=== PATIENT | female | born 1965 | race Two or more races ===

== ENCOUNTER 2022-12-04 13:24 | Emergency (ER) | payer MEDICARE, SELFPAY ==
--- NOTE | 2022-12-04 13:36 | PC.NURSE ---
checked in when on phone with [facility], left because she got an appointment
== END 2022-12-04 13:45 | disposition left against medical advice (07) ==
PROVIDERS: Emergency Provider Emergency Medicine
DX: I10 Essential (primary) hypertension (principal)

== ENCOUNTER 2022-12-04 15:35 | Emergency (ER) | payer MEDICARE, MEDICAID, SELFPAY ==
--- NOTE | ~2022-12-04 | CT_ITS ---
EXAMINATION: CT head/brain wo IV con CLINICAL INFORMATION: Reason for Exam MARIN, HTN, N COMPARISON: None available. TECHNIQUE: Contiguous axial imaging was performed from the skull base to vertex without intravenous contrast. Sagittal and coronal reformatted images were obtained. This CT examination was performed using dose optimization techniques as appropriate, variously including the following: * Automated exposure control * Adjustment of mA and/or kV according to patient size (this includes techniques or standardized protocols for targeted exams where dose is matched to indication/reason for exam; i.e. extremities or head) Use of iterative reconstruction technique DLP: 622 mGy-cm FINDINGS: There is no evidence of acute intracranial hemorrhage. No mass-effect or ventricular shift is noted. No acute, territorial loss of rodriguez-white differentiation. The ventricles and sulci are appropriate in size and configuration for the patient's stated age. No depressed calvarial fracture. The visualized paranasal sinuses are well-aerated.. The mastoid air cells are clear. Bilateral intraocular lens replacements. CT/CT head/brain wo IV con IMPRESSION: No acute intracranial hemorrhage, mass effect, or midline shift.
--- NOTE | 2022-12-04 15:38 | PC.NURSE ---
EMS REPORTS PT NEEDS MEDICATION REFILL, WAS TRANSPORTED FROM [facility]
[2022-12-04 16:25] VITALS: BP 128/79; BP 132/88; PULSE 102; PULSE 93; RESP 17; TEMP 36; O2SAT 97; O2SAT 98; BMI 35.7
--- NOTE | 2022-12-04 16:32 | ED_ITS ---
HPI - General Adult General Chief complaint: General Medical Stated complaint: diabetic emergency Time Seen by Provider: 12/04/22 20:20 Source: patient Mode of arrival: ambulatory History of Present Illness HPI narrative: This is a 57-year-old female who arrives with complaints of headache and also requesting medication refill. She is recently up visiting her son from [place] but states that they got into a verbal altercation and she is now thinking of returning to [place]. She otherwise denies any fever, chills, shortness of breath, chest pain/palpitations and denies any GI or symptoms. Related Data Allergies Allergy/AdvReac Type Severity Reaction Status Date / Time latex Allergy Rash Verified 12/04/22 16:36 Review of Systems 2 Review of Systems: Pertinent positives and negatives as stated in HPI PMFSH Past Medical History Source: nursing notes reviewed Social History Social History Alcohol intake: former Smoked in Last 30 Days: Yes Use of substances other than those prescribed or required for medical reasons: Yes Substance Use Type: Crack/Cocaine Substance Use Frequency: Chronic Longstanding Last Used Substance: Weeks (ago) Any prior treatment program specific to substance use: No Advance Directives: No Advance Directives Information Provided: No Patient : No Physical Exam ED Vital Signs: Vital Signs - 24 hr 12/04/22 16:25 12/04/22 19:42 12/04/22 19:53 Temperature 96.8 F 98 F Pulse Rate 93 82 Respiratory Rate 17 14 Blood Pressure 128/79 207/113 H 188/76 H Pulse Oximetry 97 100 Oxygen Delivery Method Room Air 12/04/22 20:00 Temperature 98.3 F Pulse Rate 88 Respiratory Rate 16 Blood Pressure 182/92 H Pulse Oximetry 99 Oxygen Delivery Method Room Air BMI result Body Mass Index 35.7 VITAL SIGNS: Reviewed. GENERAL: Well developed, well nourished, in no acute distress. HEAD: Normocephalic/atraumatic EYES: PERRLA, EOMI OROPHARYNX: no oral lesions noted, posterior pharynx clear NECK: Supple, no adenopathy LUNGS: Normal breath sounds. No adventitious sounds or accessory muscle use. SpO2<99> CARDIOVASCULAR: Regular rate and rhythm without noted murmurs ABDOMEN: Soft, non-tender, non-distended with bowel sounds. MUSCULOSKELETAL: No tenderness, deformities, or effusions noted on gross inspection. EXTREMITIES: No cyanosis, clubbing or edema. SKIN: Inspection of the skin reveals no rashes NEUROLOGIC: Alert and oriented x 4. Strength and sensation to light touch were grossly intact x 4. Course Course Course Narrative: RME: 57-year-old female with a past medical history DM, osteoarthritis, anemia, HTN, neuropathy, GERD, depression, asthma, breast cancer in remission complaining of headache & being out of her home meds--Doxepin and Lyrica x3 days. Also requesting refill of Ozempic, last took today. Recently moved here from [place] COVID/flu, POC ordered Full HPI, ROS and PE to be performed by primary ED provider. -1945--on re-evaluation patient hypertensive 207/113, complaining of headache and nausea. Labs and CT head added. states is due for her night meds. Denies CP. Night meds ordered Medications Administered Discontinued Medications Generic Name Dose Route Start Last Admin Trade Name Freq PRN Reason Stop Dose Admin Acetaminophen 975 mg 12/04/22 20:53 12/04/22 21:02 Acetaminophen 325 Mg Tablet PO 12/04/22 20:54 975 mg ONCE ONE Administration Medical Decision Making Medical Decision Making [facility] Narrative: This is a 57-year-old female with history and clinical presentation consistent with request for medication refills as well as a headache without neurologic deficits and otherwise no acute medical complaints. Her reviewed patient's medications for refills and she appears to be getting regular medication refills from her doctor in [place]. The only medication that she needs to request a refill on is the Lyrica and she was encouraged to call her primary care provider's office in the morning to request the Lyrica refill. Otherwise, her medications for diabetes and depression appear to be active and available. I reviewed all investigations and hematologic indices are without leukocytosis or left shift, there is a normocytic anemia without evidence or report of active bleeding and there is no thrombocytopenia. Coagulation studies are within normal limits. Chemistry indices are grossly within normal limits without MEAGAN and there is no electrolyte or liver enzyme abnormalities. Patient is noted to be hyperglycemic without evidence of DKA or HHS and no evidence of metabolic acidosis. CT noncontrast of the head does not demonstrate any intracranial hemorrhage, mass effect or midline shift. Viral testing is negative for influenza and COVID-19. My interpretation is that patient likely has a headache from not having eaten throughout the day and stress related with her verbal conflict with her family member. Patient has adequate medications and she is discharged home. Differential Diagnosis Differential Diagnoses: The differential diagnosis associated with the presentation includes Please see the discussion above Admission/Observation Consideration of admission/observation: Escalation of care including admission/observation considered Please see the discussion above Lab Data MDM Lab Attestation statement: I reviewed the patient's lab results. Please see the discussion above 12/04/22 20:37 12/04/22 20:37 Labs: Lab Results 12/04/22 12/04/22 12/04/22 Range/Units 18:56 19:46 20:23 WBC (4.8-10.8) X10*3/uL RBC (4.20-5.50) X10*6/uL Hgb (12.0-16.0) g/dl Hct (37.0-47.0) % MCV (80.0-98.0) fL MCH (27.0-33.0) pg MCHC (31.0-35.0) g/dl RDW (11.0-16.0) % Plt Count (160-400) X10*3/uL MPV (9.4-12.3) fL Immature Gran % (Auto) (0.0-0.4) % Neut % (Auto) (45-73) % Lymph % (Auto) (20-40) % [place] % (Auto) (2-11) % Eos % (Auto) (0-4) % Baso % (Auto) (0-2) % Lymph # (Auto) (1.2-4.9) X10*3/uL [place] # (Auto) (0.1-1.2) X10*3/uL Eos # (Auto) (0.0-0.4) X10*3/uL Baso # (Auto) (0.0-0.2) X10*3/uL Abs Immat Gran (auto) (0.00-0.03) X10*3/uL Absolute Neuts (auto) (2.0-8.3) x10*3/uL Absolute Nucleated RBC (0.0-0.012) X10*3/uL Nucleated RBC % (auto) (0.0-0.2) /100WBC PT (11.1-13.3) SEC INR (0.9-1.1) Sodium (135-145) mmol/L Potassium (3.3-5.1) mmol/L Chloride (96-108) mmol/L Carbon Dioxide (22-29) mmol/L Anion Gap (12-20) BUN (9-16) mg/dL Creatinine (0.5-1.4) mg/dL Estim Creat Clear Calc Estimated GFR POC Glucose 186 H 193 H (60-115) mg/dL Random Glucose (60-115) mg/dL Calcium (8.4-10.2) mg/dL Total Bilirubin (0.0-1.0) mg/dL Direct Bilirubin (0.0-0.5) mg/dL AST (5-31) U/L ALT (0-31) U/L Alkaline Phosphatase (39-117) U/L Total Protein (6.5-8.0) g/dL Albumin (3.5-5.0) g/dL COVID-19 (FACUNDO) Negative (Negative) COVID-19 Clin Com See Note Influenza Type A (AZALEA) Negative (Negative) Influenza Type B (AZALEA) Negative (Negative) Influenza A & B Note See Note 12/04/22 Range/Units 20:37 WBC 9.9 (4.8-10.8) X10*3/uL RBC 4.12 L (4.20-5.50) X10*6/uL Hgb 11.6 L (12.0-16.0) g/dl Hct 34.7 L (37.0-47.0) % MCV 84.2 (80.0-98.0) fL MCH 28.2 (27.0-33.0) pg MCHC 33.4 (31.0-35.0) g/dl RDW 14.9 (11.0-16.0) % Plt Count 171 (160-400) X10*3/uL MPV 11.6 (9.4-12.3) fL Immature Gran % (Auto) 0.5 H (0.0-0.4) % Neut % (Auto) 65.4 (45-73) % Lymph % (Auto) 26.0 (20-40) % [place] % (Auto) 5.1 (2-11) % Eos % (Auto) 2.1 (0-4) % Baso % (Auto) 0.9 (0-2) % Lymph # (Auto) 2.6 (1.2-4.9) X10*3/uL [place] # (Auto) 0.5 (0.1-1.2) X10*3/uL Eos # (Auto) 0.2 (0.0-0.4) X10*3/uL Baso # (Auto) 0.1 (0.0-0.2) X10*3/uL Abs Immat Gran (auto) 0.05 H (0.00-0.03) X10*3/uL Absolute Neuts (auto) 6.5 (2.0-8.3) x10*3/uL Absolute Nucleated RBC 0.000 (0.0-0.012) X10*3/uL Nucleated RBC % (auto) 0.0 (0.0-0.2) /100WBC PT 11.4 (11.1-13.3) SEC INR 0.9 (0.9-1.1) Sodium 136 (135-145) mmol/L Potassium 3.8 (3.3-5.1) mmol/L Chloride 101 (96-108) mmol/L Carbon Dioxide 24 (22-29) mmol/L Anion Gap 15 (12-20) BUN 17 H (9-16) mg/dL Creatinine 1.11 (0.5-1.4) mg/dL Estim Creat Clear Calc 58.5 Estimated GFR 50 POC Glucose (60-115) mg/dL Random Glucose 210 H (60-115) mg/dL Calcium 10.0 (8.4-10.2) mg/dL Total Bilirubin 0.3 (0.0-1.0) mg/dL Direct Bilirubin 0.1 (0.0-0.5) mg/dL AST 41 H (5-31) U/L ALT 21 (0-31) U/L Alkaline Phosphatase 106 (39-117) U/L Total Protein 7.7 (6.5-8.0) g/dL Albumin 4.3 (3.5-5.0) g/dL COVID-19 (FACUNDO) (Negative) COVID-19 Clin Com Influenza Type A (AZALEA) (Negative) Influenza Type B (AZALEA) (Negative) Influenza A & B Note Radiology Impression Discussion of test interpretation with radiology: I have reviewed the radiologist's reading. Radiologist Impression: Please see the discussion above Chronic Conditions Patient?s care impacted by: Diabetes and Hypertension Discharge Plan Discharge Clinical Impression: Headache, Hyperglycemia due to diabetes mellitus, Medication refill Patient Disposition: Home, Self-Care Instructions: General Headache (ED), Diabetic Hyperglycemia (ED) Additional Instructions: 1. Resume all home medications as prescribed. The remainder of your prescription should be a [facility]. 2. Recommend Tylenol for any headaches that you may experience. Continue to drink plenty of water. 3. Please call the office of your primary care doctor to get a refill on your Lyrica. Return to the ER for any worsening symptoms.
[2022-12-04 19:18] LABS: COVID-19 Test Negative (Negative); IDNOW Serial# 08D9AD1C; IDNOW Serial# BCCEAD1C; Influenza A Negative (Negative); Influenza B2 Negative (Negative)
[2022-12-04 19:42] VITALS: BP 207/113; PULSE 82; RESP 14; TEMP 36.6; O2SAT 100
[2022-12-04 19:50] LABS: Glucose, Whole Blood 186 mg/dL (60-115)
[2022-12-04 19:53] VITALS: BP 188/76
[2022-12-04 20:00] VITALS: BP 182/92; PULSE 88; RESP 16; TEMP 36.8; O2SAT 99
--- NOTE | 2022-12-04 20:25 | PC.NURSE ---
a&ox3, vss aside from HTN. pt was hypertensive in triage (207/113) but BP has decreased at this time (182/92). pt c/o headache/nausea at this time. POC = 193mg/dL. pt states that she is here for medication refill. states that she took her medications today but will not have enough medication for her morning doses. states that she moved here from [place] 1 month ago and does not have appt with pcp for 17 weeks. pt resting comfortably in no apparent distress at this time. respirations even and unlabored. call aviles placed within reach.
[2022-12-04 20:26] LABS: Glucose, Whole Blood 193 mg/dL (60-115)
--- NOTE | 2022-12-04 20:40 | PC.NURSE ---
labs obtained and sent to lab.
[2022-12-04 20:42] LABS: MANUAL DIFF FLAG NO
[2022-12-04 20:44] LABS: Basophils Absolute Auto 0.1 X10*3/uL (0.0-0.2); Basophils Percent Auto 0.9 % (0-2); Eosinophils Absolute Auto 0.2 X10*3/uL (0.0-0.4); Eosinophils Percent Auto 2.1 % (0-4); Hematocrit 34.7 % (37.0-47.0); Hemoglobin 11.6 g/dl (12.0-16.0); Imm Gran Abs Auto 0.05 X10*3/uL (0.00-0.03); Imm Gran Pct Auto 0.5 % (0.0-0.4); Lymphocytes Absolute Auto 2.6 X10*3/uL (1.2-4.9); Mean Corpuscular HGB Conc 33.4 g/dl (31.0-35.0); Mean Corpuscular Hemoglobin 28.2 pg (27.0-33.0); Mean Corpuscular Volume 84.2 fL (80.0-98.0); Mean Platelet Volume 11.6 fL (9.4-12.3); Monocytes Absolute Auto 0.5 X10*3/uL (0.1-1.2); Monocytes Percent Auto 5.1 % (2-11); Neutrophils Absolute Auto 6.5 x10*3/uL (2.0-8.3); Neutrophils Percent Auto 65.4 % (45-73); Platelet Count 171 X10*3/uL (160-400); Red Blood Count 4.12 X10*6/uL (4.20-5.50); Red Cell Distribution Width 14.9 % (11.0-16.0); White Blood Count 9.9 X10*3/uL (4.8-10.8)
--- OUTSIDE RECORDS SUMMARY | 2022-12-04 20:44 | XMS_ITS | Continuity of Care Document ---
Author Name Unknown Organization [facility] Address [address] [place] [address]- Care Team Providers Care Patent Prosecution Attorney Name Role Phone Not on Staff, PCP Primary Care Physician Unavail able Encounter [facility] [place] [facility] [place](s): 10/30/22 - 11/29/22 [facility] [address] [place] [address]- Attending Physician: Leif Jack Admitting Physician: AdmLeif hoffman Referring Physician: Admtr, Audie8 Allergies, Adverse Reactions, Alerts Substance Reaction Severity Status ibuprofen Active salicylates Active Levaquin hives Active Chantix NIGHTMARES Active Animal Dander Active Latex Active Pollen Active Seafood 1 seafood Active 1edema throat close carrt epi pen Immunizations Given and Recorded Vaccine Date Status Refusal Reason influenza virus vaccine, inactivated 1 04/25/09 Gi viry influenza virus vaccine, inactivated 2 12/04/06 Gi viry tetanus/diphtheria/pertussis, acel(Tdap) 04/10/08 Given Influenza Virus Vaccine (oldterm) 3 10/28/07 Given Pneumococcal Vaccine (oldterm) 4 09/09/04 Given 1Admin Note: VIS GIVEN-DATED 09/26/08 2Admin Note: VIS GIVEN 3Admin Note: vis given 4Admin Note: provider recording is Brandi tse, provider who gave it is in written chart at [facility] Medications Advair Diskus 500 mcg-50 mcg inhalation powder 1, puffs, Inhalation, 2 times a day, # 60 each, Refills 0, Tot. Refills 0, Maintenance, 01/28/16 14:09:30, Powder, Route to Pharmacy Electronically, [id number], [facility]. Start Date: 01/28/16 Status: Ordered ARIPiprazole 2 mg oral tablet 2 mg, 1, tablet, By Mouth, Daily at bedtime, # 30 tablet, Refills 0, Tot. Refills 0, Maintenance, 10/30/22 20:00:00 EDT, Route to Pharmacy Electronically, [facility] #[id number], Partial fill upon patient request if the prescription is for a sche... Start Date: 10/30/22 Status: Ordered atorvastatin 40 mg oral tablet 1 tablet = 40 mg, By Mouth, Daily at bedtime, # 30 tablet, 0 Refills, Maintenance, 10/30/22 20:00:00 EDT, Tablet, [facility] #[id number], Partial fill upon patient request if the prescription isfor a schedule II opioid drug., 160.02, cm, ... Start Date: 10/30/22 Status: Ordered atorvastatin 40 mg oral tablet 1 tablet = 40 mg, By Mouth, Daily, # 30 tablet, 0 Refills, Maintenance, Tablet, Route to Pharmacy Electronically, [id number], [facility] Start Date: 01/28/16 Status: Ordered Cymbalta 20 mg oral enteric coated capsule 1 capsule = 20 mg, By Mouth, 2 times a day, # 180 capsule, 0 Refills, Maintenance, 01/28/16 14:15:36, EC Capsule Start Date: 01/28/16 Status: Ordered doxepin 50 mg oral capsule 1 capsule = 50 mg, By Mouth, Daily at bedtime, # 30 capsule, 0 Refills, Maintenance, 10/30/22 20:01:00 EDT, Capsule, [facility] #[id number], Partial fill upon patient request if the prescriptionis for a schedule II opioid drug., 160.02, cm, 10/17... Start Date: 10/30/22 Status: Ordered EpiPen 2-Manuel 0.3 mg injectable kit = 0.3 mg, Intramuscular, Once, # 1 kit, 0 Refills, Soft Stop, 01/30/16 17:37:58 Start Date: 01/30/16 Status: Ordered Freestyle Lite Test Strips See Instructions, # 100 each, Refills 11, Tot. Refills 11, Maintenance, for DM2 ICD E11.65 check bs3 x per day, 01/28/16 16:13:59, Compound Start Date: 01/28/16 Status: Ordered insulin lispro 100 u/ml subcutaneous injection = 6 units, Subcutaneous Injection, 3 times a day with meals, # 15 mL, 0 Refills, Maintenance, 01/28/16 16:13:39, Solution Start Date: 01/28/16 Stop Date: 02/27/16 Status: Ordered lamotrigine 200 mg oral tablet 1 tablet = 200 mg, By Mouth, Daily at bedtime, # 30 tablet, 0 Refills, Maintenance, 01/28/16 14:13:42, Tablet Start Date: 01/28/16 Stop Date: 02/27/16 Status: Ordered Lantus 100 u/ml subcutaneous solution = 18 units, Subcutaneous Infusion, Daily at bedtime, # 10 mL, 0 Refills, Maintenance, 01/28/16 16:12:43 Start Date: 01/28/16 Stop Date: 02/27/16 Status: Ordered Latuda 80 mg oral tablet 2 tablet = 160 mg, By Mouth, Daily, with food, # 60 tablet, 0 Refills, Maintenance, 01/28/16 14:12:34, Tablet Start Date: 01/28/16 Status: Ordered lisinopril 20 mg oral tablet 20 mg, 1, tablet, By Mouth, Daily, # 30 tablet, Refills 0, Tot. Refills 0, Maintenance, 10/30/22 20:01:00 EDT, Route to Pharmacy Electronically, [facility] #[id number], Partial fill upon patientrequest if the prescription is for a schedule II op... Start Date: 10/30/22 Status: Ordered metoclopramide 5 mg oral tablet 1 tablet = 5 mg, By Mouth, 2 times a day, PRN Nausea, # 60 tablet, 0 Refills, Maintenance, 10/31/2319:03:00 EDT, Tablet, [facility] #[id number], Partial fill upon patient request if the prescription is for a schedule II opioid drug., 160.02, cm,... Start Date: 10/30/22 Status: Ordered montelukast 10 mg oral tablet 10 mg, 1, tablet, By Mouth, Daily, # 30 tablet, Refills 0, Tot. Refills 0, Maintenance, 10/30/22 20:04:00 EDT, Route to Pharmacy Electronically, [facility] #[id number], Partial fill upon patientrequest if the prescription is for a schedule II op... Start Date: 10/30/22 Status: Ordered nortriptyline 50 mg oral capsule 50 mg, 1, capsule, By Mouth, Daily at bedtime, # 30 capsule, Refills 0, Tot. Refills 0, Maintenance, 10/30/22 20:04:00 EDT, Route to Pharmacy Electronically, [facility] #[id number], Partial fillupon patient request if the prescription is for a s... Start Date: 10/30/22 Status: Ordered omeprazole 20 mg oral enteric coated capsule 1 capsule = 20 mg, By Mouth, Daily before breakfast, # 30 capsule, 0 Refills, Maintenance, 10/31/2319:04:00 EDT, EC Capsule, [facility] #[id number], Partial fill upon patient request if the prescription is for a schedule II opioid drug., 160.02,... Start Date: 10/30/22 Status: Ordered omeprazole 40 mg oral enteric coated capsule 1 capsule = 40 mg, By Mouth, Daily, # 30 capsule, 0 Refills, Maintenance, 01/28/16 14:17:12, EC Capsule Start Date: 01/28/16 Stop Date: 02/27/16 Status: Ordered Pen Mitchells, 31 G x 5 mm BD Ultra Fine III See Instructions, # 30 each, Maintenance, for DM2, ICD E11.65, 01/28/16 14:06:51, Compound Start Date: 01/28/16 Status: Ordered pregabalin 200 mg oral capsule 1 capsule = 200 mg, By Mouth, 3 times a day, # 90 capsule, 0 Refills, Maintenance, 10/30/22 20:05:00 EDT, Capsule, [facility] #[id number], Partial fill upon patient request if the prescription is for a schedule II opioid drug., 160.02, cm, ... Start Date: 10/30/22 Status: Ordered Spiriva HandiHaler 18 mcg Inhalation Capsule 1 capsule = 18 mcg, Inhalation, Daily, # 30 capsule, 0 Refills, Maintenance, 01/28/16 14:12:54, Capsule, 1 capsule Inhalation Daily,x30 days Start Date: 01/28/16 Stop Date: 02/27/16 Status: Ordered Ventolin HFA 108 mcg/inh inhalation aerosol with adapter 2 puffs, Inhalation, 4 times a day, PRN for wheezing, # 18 Gm, 0 Refills, Maintenance, 01/28/16 14:10:14, Aerosol Start Date: 01/28/16 Status: Ordered Problem List Condition Confirmation Course Effective Dates Status H ealth Status Informant Anxiety depression 1 Confirmed Active Asthma Confirmed Stable Active Diabetes mellitus Confirmed Active Dyslipidemia Confirmed Active Fatty liver 2 Confirmed Active Hypertension Confirmed Active Low back pain Confirmed Active Breast cancer S/P LT mastectomy 03/2014 Confirmed Active Narcotic drug user Confirmed Active Osteoarthritis Confirmed Active Tobacco smoking behavior - finding Confirmed Active 1being seen by the psychotherapist 2hepatitis panel Nl in 02/21 Social History Social History Type Response Smoking Status Current every day matt katherin entered on: 01/28/16 Sex Patient Care team information Care Team Personnel Name: Not on Staff, PCP Position: S Physician (General Medicine) Member Role: PCP Care Team Related Persons Name: ZARA AGUIRRE Name: MELODY SWEET Address: [address] [address] Name: DEBBIE PATRICIO Address: [place] [address]
--- OUTSIDE RECORDS SUMMARY | 2022-12-04 20:44 | XMS_ITS | Continuity of Care Document ---
Author Name Unknown Organization [facility] Address [address] [place] [address]- Care Team Providers Care Cable Tender Name Role Phone Not on Staff, PCP Primary Care Physician Unavail able En[place] [facility] [place]): 10/30/22 - 11/06/22 [facility] [address] [place] [address]- Encounter Diagnosis Hypertension(Discharge Diagnosis) - 10/30/22 Asthma(Discharge Diagnosis) - 10/30/22 Diabetic neuropathy(Discharge Diagnosis) - 10/30/22 Anxiety depression(Discharge Diagnosis) - 10/30/22 Hyperlipidemia(Discharge Diagnosis) - 10/30/22 Chronic GERD(Discharge Diagnosis) - 10/30/22 Attending Physician: Alireza MORGAN, Ylbebo Y Referring Physician: Not on Staff, Referring MD Allergies, Adverse Reactions, Alerts Substance Reaction Severity [...] gave it is in written chart at [facility] Medications Advair Diskus 500 mcg-50 mcg inhalation powder 1, puffs, Inhalation, 2 times a day, # 60 each, Refills 0, Tot. Refills 0, Maintenance, 01/28/16 14:09:30, Powder, Route to Pharmacy Electronically, [id number], [facility] Start Date: 01/28/16 Status: Ordered ARIPiprazole 2 mg oral tablet 2 mg, 1, tablet, By Mouth, Daily at bedtime, # 30 tablet, Refills 0, Tot. Refills 0, Maintenance, 10/30/22 20:00:00 EDT, Route to Pharmacy Electronically, [facility] #[id number], Partial fill upon patient request if the prescription is for a sche... Start Date: 10/30/22 Status: Ordered atorvastatin 40 mg oral tablet 1 tablet = 40 mg, By Mouth, Daily at bedtime, # 30 tablet, 0 Refills, Maintenance, 10/30/22 20:00:00 EDT, Tablet, [facility] #[id number], Partial fill upon patient request if the prescription isfor a schedule II opioid drug., 160.02, cm, ... Start Date: 10/30/22 Status: Ordered atorvastatin 40 mg oral tablet 1 tablet = 40 mg, By Mouth, Daily, # 30 tablet, 0 Refills, Maintenance, Tablet, Route to Pharmacy Electronically, [id number], [facility] Start Date: 01/28/16 Status: Ordered Cymbalta [...] 0 Refills, Maintenance, 10/30/22 20:01:00 EDT, Capsule, [facility] #[id number], Partial fill upon patient request if the [...] 10/30/22 20:01:00 EDT, Route to Pharmacy Electronically, [facility] #[id number], Partial fill upon patientrequest if the prescription is for a schedule II op... Start Date: 10/30/22 Status: Ordered metoclopramide 5 mg oral tablet 1 tablet = 5 mg, By Mouth, 2 times a day, PRN Nausea, # 60 tablet, 0 Refills, Maintenance, 10/31/2319:03:00 EDT, Tablet, [facility] #[id number], Partial fill upon patient request if the prescription is for a schedule II opioid drug., 160.02, cm,... Start Date: 10/30/22 Status: Ordered montelukast 10 mg oral tablet 10 mg, 1, tablet, By Mouth, Daily, # 30 tablet, Refills 0, Tot. Refills 0, Maintenance, 10/30/22 20:04:00 EDT, Route to Pharmacy Electronically, [facility] #[id number], Partial fill upon patientrequest if the prescription is for a schedule II op... Start Date: 10/30/22 Status: Ordered nortriptyline 50 mg oral capsule 50 mg, 1, capsule, By Mouth, Daily at bedtime, # 30 capsule, Refills 0, Tot. Refills 0, Maintenance, 10/30/22 20:04:00 EDT, Route to Pharmacy Electronically, [facility] #[id number], Partial fillupon patient request if the prescription is for a s... Start Date: 10/30/22 Status: Ordered omeprazole 20 mg oral enteric coated capsule 1 capsule = 20 mg, By Mouth, Daily before breakfast, # 30 capsule, 0 Refills, Maintenance, 10/31/2319:04:00 EDT, EC Capsule, [facility] #[id number], Partial fill upon patient request if the prescription is for a schedule II opioid drug., 160.02,... Start Date: 10/30/22 Status: Ordered omeprazole 40 mg oral enteric coated capsule 1 capsule = 40 mg, By Mouth, Daily, # 30 capsule, 0 Refills, Maintenance, 01/28/16 14:17:12, EC Capsule Start Date: 01/28/16 Stop Date: 02/27/16 Status: Ordered Pen [place], 31 G x 5 mm BD Ultra Fine III See Instructions, # 30 each, Maintenance, for DM2, ICD E11.65, 01/28/16 14:06:51, Compound Start Date: 01/28/16 Status: Ordered pregabalin 200 mg oral capsule 1 capsule = 200 mg, By Mouth, 3 times a day, # 90 capsule, 0 Refills, Maintenance, 10/30/22 20:05:00 EDT, Capsule, [facility] #[id number], Partial fill upon patient request if the prescription is for a schedule II opioid drug., 160.02, cm, 09/14/... Start Date: 10/30/22 Status: Ordered Spiriva HandiHaler [...] the psychotherapist 2hepatitis panel Nl in 02/21 Diagnosis Diagnosis Type Effective Dates Health Status Clinical Service Informant Hypertension Discharge Diagnosis 10/30/22 Asthma Discharge Diagnosis 10/30/22 Diabetic neuropathy Discharge Diagnosis 10/30/22 Anxiety depression Discharge Diagnosis 10/30/22 Hyperlipidemia Discharge Diagnosis 10/30/22 Chronic GERD Discharge Diagnosis 10/30/22 Vital Signs Most recent to oldest [Reference Range]: 1 2 Height 160.02 cm (10/30/22 7:59 PM) 160.02 cm (10/30/22 6:07 PM) Oxygen Saturation [94-100 %] 99 % (10/30/22 6:07 PM) Pulse Rate [55-90 bpm] 68 bpm (10/30/22 6:07 PM) Blood Pressure [90-138/55-84 mm Hg] 142/ 78mm Hg *H* (10/30/22 7:59 PM) 181/72mm Hg *H* (10/30/22 6:07 PM) Respiratory Rate [16-30 br/min] 18 br/mi n (10/30/22 6:07 PM) Temperature [96.8-100.4 DegF] 98.2 DegF (10/30/22 6:07 PM) Mode of Delivery (Oxygen) Room air (10/30/22 6:07 PM) Blood pressure sites Arm, left (10/30/22 6:07 PM) Temperature Route Temporal (10/30/22 6:07 PM) Social History Social History Type Response Smoking Status Current every day matt pandey entered on: 01/28/16 Sex Patient Care team information Care Team Personnel Name: Not on Staff, PCP Position: S Physician (General Medicine) Member Role: PCP Care Team Related Persons Name: ZARA AGUIRRE Name: MELODY SWEET Address: home [address] [place] [id number] Name: DEBBIE PATRICIO Address: [place] [address]
--- NOTE | 2022-12-04 20:49 | PC.NURSE ---
pt currently speaking w/ provider at this time.
[2022-12-04 20:51] LABS: INTERNATIONAL NORM RATIO 0.9 (0.9-1.1); Prothrombin Time 11.4 SEC (11.1-13.3)
[2022-12-04 21:00] LABS: Alanine Aminotransferase 21 U/L (0-31); Albumin Level 4.3 g/dL (3.5-5.0); Alkaline Phosphatase 106 U/L (39-117); Anion Gap 15 (12-20); Aspartate Amino Transferase 41 U/L (5-31); Bilirubin Direct 0.1 mg/dL (0.0-0.5); Bilirubin Total 0.3 mg/dL (0.0-1.0); Blood Urea Nitrogen 17 mg/dL (9-16); Carbon Dioxide 24 mmol/L (22-29); Chloride 101 mmol/L (96-108); Creatinine Clr Calc Pharmacy 58.5; Estimated Glomerular Filt Rate 50; Glucose Random 210 mg/dL (60-115); Potassium 3.8 mmol/L (3.3-5.1); Sodium 136 mmol/L (135-145); Total Protein 7.7 g/dL (6.5-8.0)
[2022-12-04] MEDS: Acetaminophen 325 MG TABLET 975 MG PO (21:02)
--- NOTE | 2022-12-04 21:03 | PC.NURSE ---
pt medicated per provider order. pt aware of plan of care at this time.
[2022-12-04 21:14] LABS: Troponin-I High Sensitivity < 2.7 ng/L (<3.5-17.0)
== END 2022-12-04 21:25 | disposition home or self-care (01) ==
PROVIDERS: Physician Assistant; Emergency Provider Student in an Organized Health Care Education/Training Program
DX: R51.9 Headache, unspecified (principal); E11.65 Type 2 diabetes mellitus with hyperglycemia; R11.0 Nausea; Z11.52 Encounter for screening for COVID-19; I10 Essential (primary) hypertension; Z76.0 Encounter for issue of repeat prescription; G62.9 Polyneuropathy, unspecified; D64.9 Anemia, unspecified; K21.9 Gastro-esophageal reflux disease without esophagitis; J45.909 Unspecified asthma, uncomplicated; Z85.3 Personal history of malignant neoplasm of breast
CPT/HCPCS: 36415; 70450; 80048; 80076; 82947; 84484; 85025; 85610; 87502; 87635; 99284